=== PATIENT | female | born 1985 | race African-American/Black ===

== ENCOUNTER 2019-06-16 15:34 | Emergency (ER) | payer OTHER ==
[~2019-06-16] VITALS: Ht 165.1 cm; Wt 93.0 kg
[2019-06-16 15:47] VITALS: BP 144/85
[2019-06-16] MEDS ORDERED: ALBUTEROL SULF 2.5 MG/0.5ML(0.5%) NEB SOLN NEB ONE (16:45)
[2019-06-16] MEDS ORDERED: IPRATROPIUM BROM 0.5 MG/2.5ML INH SOL NEB ONE (16:45)
[2019-06-16] MEDS ORDERED: DexAMETHasone SOD PHOS 10MG/1ML VIAL INJ IM ONE (17:00)
== END 2019-06-16 17:26 | disposition home or self-care (01) ==
LOC: ER 15:34
DX: J45.998 Other asthma (principal); F17.210 Nicotine dependence, cigarettes, uncomplicated; Z91.040 Latex allergy status; Z88.8 Allergy status to other drugs, medicaments and biological substances; Z91.018 Allergy to other foods
CPT/HCPCS: 71046; 93005; 94640; 96372; 99283; J1100; J7611; J7644